=== PATIENT | male | born 1980 | race African-American/Black ===

== ENCOUNTER 2024-08-21 15:39 | Emergency (ER) | payer SELFPAY ==
[2024-08-21 16:28] LABS: SARS-CoV-2 Antigen CONTROL BLUE LINE VIS/BG OK; SARS-CoV-2 Antigen Rapid Res Negative (Negative)
[2024-08-21] MEDS ORDERED: predniSONE 20 MG TAB ONE (16:28)
[2024-08-21] MEDS ORDERED: AMOX/K CLAV 875 MG TAB ONE (16:34)
--- NOTE | 2024-08-21 16:42 | EDPHYS ---
Physician Documentation [facility] Name: Gray Mcgee Age: 44 yrs Sex: Male : 1980 Arrival Date: 08/21/2024 Time: 15:39 Bed IW4 Private MD: ED Physician Roderick Cedeño HPI: 08/21 16:34 This 44 yrs old Black Male presents to ER via Ambulatory with complaints of Nasal ec2 Congestion, bump on head. 16:34 Patient arrives today for evaluation of URI symptoms. Patient reports he been having ec2 congestion along with sinus drainage ongoing for the past several months. Has tried rnlh-[id number]-ywtjxto medications without improvement in symptoms. Has not seen a physician for this or ENT. Patient reports otherwise no fevers, no nausea, no vomiting.. 16:34 Also reports that he had a spot on the back of his head that he had drained on his own ec2 without issue. No fevers or chills.. Historical: - Allergies: 16:25 No Known Allergies; iw - Immunization history:: Adult Immunizations up to date. - Infectious Disease History:: Denies. - Social history:: Smoking status: unknown. ROS: 16:34 Constitutional: as per hpi ec2 Exam: 16:34 Constitutional: GEN: NAD Head: atraumatic Eyes: EOMI Ears: External ears are ec2 normal. CV: regular rate LUNGS: no respiratory distress, no wheezes or rales or rhonchi. ABD: non-distended SKIN: no evidence of rashes, small punctate spot on the back of the head without fluctuance or erythema. MSK: no evidence of trauma Vital Signs: 16:27 BP 133 / 67; Pulse 86; Resp 19; Temp 98.1; Pulse Ox 96% on R/A; Weight 97.52 kg; Height iw 6 ft. 1 in. ; Pain 0/10; 16:27 Body Mass Index 28.37 (97.52 kg, 185.42 cm) iw 16:27 Pain Scale: Adult iw MDM: 16:08 Medical Screening Exam initiated ec2 16:35 Data reviewed: vital signs, nurses notes. ED course: Patient arrives today for URI ec2 symptoms. Examination is unrevealing. Will treat the patient for chronic sinusitis given the duration of symptoms of several months. Will start the patient on steroids and antibiotics and have the patient follow-up with PCP. Return precautions given.. 08/21 16:02 Order name: Influenza Screen (a \T\ B); Complete Time: 16:41 ec2 08/21 16:02 Order name: SARS RAPID; Complete Time: 16:35 ec2 Administered Medications: 16:36 Drug: Amoxicillin-Clavulanate PO 875 mg PO once Route: PO; iw 16:36 Drug: predniSONE PO 40 mg PO once Route: PO; iw Disposition Summary: 08/21/24 16:41 Discharge Ordered Notes: Location: Home ec2 Condition: Stable ec2 Diagnosis - Chronic maxillary sinusitis ec2 Followup: ec2 - With: Adeola Price MD - When: - Reason: Recheck today's complaints Discharge Instructions: - Discharge Summary Sheet ec2 - Sinusitis, Adult ec2 Forms: - Medication Reconciliation Form ec2 - Antibiotic Education ec2 - Prescription Opioid Use ec2 - Patient Portal Instructions ec2 - Leadership Thank You Letter ec2 Prescriptions: - Augmentin 875-125 mg Oral Tablet - take 1 tablet ORAL route every 12 hours for 10 days; 20 tablet; Refills: 0, ec2 Product Selection Permitted - Prednisone 20 mg Oral Tablet - take 2 tablets ORAL route once daily for 5 days; 10 tablet; Refills: 0, Product ec2 Selection Permitted Signatures: Dispatcher [employer] Phylicia Velasco RN RN iw Prokisch, Amanda RN RN ap3 Roderick Cedeño MD MD ec2 Corrections: (The following items were deleted from the chart) 16:03 16:03 Influenza Screen (A \T\ B)+BA.LAB.BRZ ordered. EDMS EDMS 16:03 16:03 SARS-COV-2 Antigen Rapid+I.LAB.BRZ ordered. EDMS EDMS
--- NOTE | 2024-08-21 16:42 | ER ---
Nurse's Notes [facility] Name: Gray Mcgee Age: 44 yrs Sex: Male : 1980 Arrival Date: 08/21/2024 Time: 15:39 Bed IW4 Private MD: Diagnosis: Chronic maxillary sinusitis Presentation: 08/21 16:24 Chief complaint: Patient states: cough, congestion. Coronavirus screen: Client presents iw with at least one sign or symptom that may indicate coronavirus-19. Ebola Screen: No symptoms or risks identified at this time. Initial Sepsis Screen: Does the patient meet any 2 criteria? No. Patient's initial sepsis screen is negative. Does the patient have a suspected source of infection? No. Patient's initial sepsis screen is negative. Risk Assessment: Do you want to hurt yourself or someone else? Patient reports no desire to harm self or others. Onset of symptoms. 16:24 Method Of Arrival: Ambulatory iw 16:24 Acuity: ANNETTE 4 iw Triage Assessment: 17:04 General: Appears in no apparent distress. comfortable, Behavior is calm, cooperative, ap3 appropriate for age. Pain: Denies pain. Historical: - Allergies: 16:25 No Known Allergies; iw - Immunization history:: Adult Immunizations up to date. - Infectious Disease History:: Denies. - Social history:: Smoking status: unknown. Screenin:03 [facility] ED Fall Risk Assessment (Adult) History of falling in the last 3 months, ap3 including since admission No falls in past 3 months (0 pts) Confusion or Disorientation No (0 pts) Intoxicated or Sedated No (0 pts) Impaired Gait No (0 pts) Mobility Assist Device Used No (0 pt) Altered Elimination No (0 pt) Score/Fall Risk Level 0 - 2 = Low Risk Oriented to surroundings, Maintained a safe environment, Educated pt \T\ family on fall prevention, incl call for assistance when getting out of bed, Assessed \T\ reinforced patient's understanding of fall precautions, Hourly rounding (assess needs \T\ fall precautionary measures) done, Used ambulatory aids as needed (educated on \T\ assisted with), Used gait belt as appropriate. Abuse screen: Denies threats or abuse. Nutritional screening: No deficits noted. Tuberculosis screening: No symptoms or risk factors identified. Vital Signs: 16:27 BP 133 / 67; Pulse 86; Resp 19; Temp 98.1; Pulse Ox 96% on R/A; Weight 97.52 kg; Height iw 6 ft. 1 in. ; Pain 0/10; 16:27 Body Mass Index 28.37 (97.52 kg, 185.42 cm) iw 16:27 Pain Scale: Adult ED Course: 15:42 Patient arrived in ED. im 16:02 Roderick Cedeño MD is Attending Physician. ec2 16:12 SARS RAPID Sent. 16:12 Influenza Screen (a \T\ B) Sent. zm 16:25 Triage completed. iw 16:25 Arm band placed on. iw 16:41 Adeola Price MD is Referral Physician. ec2 17:04 No provider procedures requiring assistance completed. Patient did not have IV access ap3 during this emergency room visit. 17:04 Patient has correct armband on for positive identification. Provided Education on: ap3 follow up instructions. Administered Medications: 16:36 Drug: Amoxicillin-Clavulanate PO 875 mg PO once Route: PO; iw 16:36 Drug: predniSONE PO 40 mg PO once Route: PO; iw Medication: 17:04 VIS not applicable for this client. ap3 Outcome: 16:41 Discharge ordered by . ec2 17:04 Discharged to home ambulatory, ap3 17:04 Condition: good 17:04 Discharge instructions given to patient, Instructed on discharge instructions, follow up and referral plans. medication usage, Demonstrated understanding of instructions, follow-up care, medications, Prescriptions given X 2, 17:05 Patient left the ED. ap3 Signatures: Phylicia Smith RN RN Katie Richardson RN RN ap3 Phylicia Aguilar Itzel Roderick Cedeño MD MD ec2
[2024-08-21 20:54] VITALS: BP 133/67; TEMP 98.1; O2SAT 96
== END 2024-08-21 17:05 | disposition home or self-care (01) ==
LOC: ER 15:39
DX: J32.0 Chronic maxillary sinusitis (principal); Z11.52 Encounter for screening for COVID-19
CPT/HCPCS: 36415; 87804; 87811; 99283; J7512